=== PATIENT | male | born 1945 | race Caucasian/White ===

== ENCOUNTER 2016-02-24 08:52 | Emergency (ER) | payer OTHER, BC ==
[~2016-02-24] VITALS: Ht 177.8 cm; Wt 87.6 kg
[~2016-02-24 08:52] MED LIST: AMIODARONE HCL400 MG PO; ASPIRIN81 M1 PO; Lopressor PO; PACERONE200 M1 PO; PRADAXA150 MG PO; Pradaxa PO
[2016-02-24 09:58] LABS: EOSINOPHIL (%) 0.6 % (0-5); EOSINOPHIL COUNT 0.1 K/uL (0-0.3); HEMATOCRIT 44.2 % (38.0-50.0); IMMATURE GRANULOCYTE (%) 0.3 % (0.0-0.7); IMMATURE GRANULOCYTE COUNT 0.3 K/uL; MCH 30.6 PG (29.0-34.0); MCHC 34.4 G/DL (30.0-36.0); MCV 89.1 FL (86-99); MEAN PLAT.VOLUME 8.8 uM^3 (9.0-12.4); MONOCYTE COUNT 0.6 K/uL (0-0.8); NEUTROPHIL (%) 69.9 % (45-76); NEUTROPHIL COUNT 6.3 K/uL (1.8-6.4); PLATELET COUNT 305 K/uL (156-360); RBC DIS.WIDTH-CV 13.5 % (11.8-14.6); RBC DIS.WIDTH-SD 43.2 % (39-53); RED BLOOD COUNT 4.96 M/uL (4.00-5.50)
[2016-02-24 10:08] LABS: CHLORIDE 108 mEq/L (99-109); POTASSIUM 4.9 mEq/L (3.7-5.4); SODIUM 138 mEq/L (136-147)
[2016-02-24 10:09] LABS: MAGNESIUM 2.1 mg/dL (1.3-2.7)
[2016-02-24 10:11] LABS: GLUCOSE 100 mg/dL (70-99)
[2016-02-24 10:12] LABS: ANION GAP 8 MEQ/L (2-14)
[2016-02-24 10:13] LABS: TOTAL BILIRUBIN 0.5 mg/dL (0.0-1.0)
[2016-02-24 10:14] LABS: ALKALINE PHOSPHATASE 64 IU/L (3-129)
[2016-02-24 10:15] LABS: GFR ESTIMATE (CALCULATED) 49 mL/min/
[2016-02-24 10:16] LABS: UREA NITROGEN (BUN) 18 mg/dL (9-23)
[2016-02-24 10:20] LABS: TROP-I INTERPRETATION NEGATIVE; TROPONIN-I < 0.01 ng/mL (0.0-0.30)
[2016-02-24 13:36] VITALS: BP 112/73
== END 2016-02-24 13:33 | disposition home or self-care (01) ==
LOC: EME 08:52
PROVIDERS: Emergency Medicine
PROC: 5A2204Z Restoration of Cardiac Rhythm, Single (ICD-10-PCS; principal; 2016-02-24)
DX: I48.92 Unspecified atrial flutter (principal); I25.2 Old myocardial infarction; Z85.46 Personal history of malignant neoplasm of prostate
CPT/HCPCS: 80053; 83735; 84484; 85025; 93005; 99281; 99285; J7030

== ENCOUNTER 2016-03-27 08:47 | Day surgery (SDC) | payer OTHER, BC ==
[~2016-03-27] VITALS: Ht 177.8 cm; Wt 83.9 kg
[~2016-03-27 08:47] MED LIST changes: +METOPROLOL TART25 MG PO
== END 2016-03-27 11:50 | disposition home or self-care (01) ==
LOC: CATH 08:47
PROC: 5A2204Z Restoration of Cardiac Rhythm, Single (ICD-10-PCS; principal; 2016-03-27)
DX: I48.92 Unspecified atrial flutter (principal); I48.91 Unspecified atrial fibrillation; E78.5 Hyperlipidemia, unspecified; I25.2 Old myocardial infarction; N40.0 Benign prostatic hyperplasia without lower urinary tract symptoms
CPT/HCPCS: 93005

== ENCOUNTER 2016-11-06 05:22 | Day surgery (SDC) | payer OTHER, BC ==
[~2016-11-06] VITALS: Ht 177.8 cm; Wt 85.7 kg
[2016-11-06 06:02] VITALS: BP 145/73
[2016-11-06] MEDS ORDERED: NORCO 5/3251 TABLET PO (09:25)
[2016-11-06 09:50] VITALS: BP 123/70
[2016-11-06 10:55] VITALS: BP 143/75
== END 2016-11-06 10:55 | disposition home or self-care (01) ==
LOC: SDC 05:22
PROC: 0YU50JZ Supplement Right Inguinal Region with Synthetic Substitute, Open Approach (ICD-10-PCS; principal; 2016-11-06)
DX: K40.91 Unilateral inguinal hernia, without obstruction or gangrene, recurrent (principal); Z85.46 Personal history of malignant neoplasm of prostate; I25.10 Atherosclerotic heart disease of native coronary artery without angina pectoris; I25.2 Old myocardial infarction; I48.91 Unspecified atrial fibrillation; Z98.890 Other specified postprocedural states; E78.5 Hyperlipidemia, unspecified; I34.0 Nonrheumatic mitral (valve) insufficiency; E66.3 Overweight; Z68.27 Body mass index [BMI] 27.0-27.9, adult; Z79.01 Long term (current) use of anticoagulants; Z82.49 Family history of ischemic heart disease and other diseases of the circulatory system; Z82.5 Family history of asthma and other chronic lower respiratory diseases
CPT/HCPCS: C1781; J0131; J0690; J1100; J2250; J2405; J3010; S0020

== ENCOUNTER 2017-06-09 14:47 | Emergency (ER) | payer OTHER, BC ==
[~2017-06-09] VITALS: Ht 180.3 cm; Wt 89.7 kg
[~2017-06-09 14:47] MED LIST changes: +NORCO 5/3251 TABLET PO
[2017-06-09 15:18] LABS: HEMATOCRIT 40.7 % (38.0-50.0); HEMOGLOBIN 13.8 G/DL (12.5-16.6); MCH 30.5 PG (29.0-34.0); MCHC 33.9 G/DL (30.0-36.0); PLATELET COUNT 275 K/uL (156-360); RBC DIS.WIDTH-CV 13.2 % (11.8-14.6); RBC DIS.WIDTH-SD 43.9 % (39-53); RED BLOOD COUNT 4.52 M/uL (4.00-5.50); WHITE BLOOD COUNT 8.6 K/uL (4.1-10.2)
[2017-06-09 15:33] LABS: CHLORIDE 110 mEq/L (99-109); POTASSIUM 4.1 mEq/L (3.7-5.4); SODIUM 140 mEq/L (136-147)
[2017-06-09 15:34] LABS: GLUCOSE 90 mg/dL (70-99)
[2017-06-09 15:38] LABS: CREATININE 1.3 mg/dL (0.6-1.3); GFR ESTIMATE (CALCULATED) 58 mL/min/ (58.99-99999)
[2017-06-09 15:39] LABS: UREA NITROGEN (BUN) 18 mg/dL (9-23)
[2017-06-09 15:47] LABS: TROP-I INTERPRETATION NEGATIVE; TROPONIN-I < 0.01 ng/mL (0.0-0.30)
[2017-06-09] MEDS ORDERED: PRADAXA150 MG PO ×2 (19:44→20:28)
[2017-06-09 20:03] LABS: TROP-I INTERPRETATION NEGATIVE; TROPONIN-I 0.02 ng/mL (0.0-0.30)
[2017-06-09 20:38] VITALS: BP 132/77
== END 2017-06-09 20:40 | disposition home or self-care (01) ==
LOC: EME 14:47
PROVIDERS: Nurse Practitioner Family
DX: R00.2 Palpitations (principal); T50.996A Underdosing of other drugs, medicaments and biological substances, initial encounter; Z91.14 Patient's other noncompliance with medication regimen; I48.91 Unspecified atrial fibrillation; I25.2 Old myocardial infarction; Z85.46 Personal history of malignant neoplasm of prostate
CPT/HCPCS: 71046; 80048; 84484; 85027; 85379; 93005; 99281; 99285; J7120